=== PATIENT | female | born 1985 | race Caucasian/White ===

== ENCOUNTER → 2023-11-29 | Outpatient (CLI) | payer OTHER | END | disposition home or self-care (01) | LOC: LABWHC1 16:08 | PROVIDERS: ATTEND Obstetrics & Gynecology Obstetrics | DX: Z34.83 Encounter for supervision of other normal pregnancy, third trimester (principal) | CPT/HCPCS: 86850; 86900; 86901 ==

== ENCOUNTER 2023-12-25 15:31 | Outpatient (CLI) | payer OTHER ==
[2023-12-25 16:37] LABS: Basophils % (A) 0 %; Eosinophils # (A) 0.3 k/uL (0-0.7); Eosinophils % (A) 3 %; HCT 34.4 % (34.0-46.0); Lymphocytes # (A) 1.2 k/uL (1.0-4.8); Lymphocytes % (A) 13 %; MCH 27.6 pg (25.0-35.0); MCHC 31.8 g/dL (31.0-37.0); MCV 86.5 fL (80.0-100.0); Mean Platelet Volume 9.7; Monocytes # (A) 0.5 k/uL (0-1.0); Monocytes % (A) 5 %; Neutrophils # (A) 6.6 k/uL (1.3-7.7); Neutrophils % (A) 75 %; Platelet Count 324 k/uL (150-450); RBC 3.97 m/uL (3.80-5.40); RDW 15.9 % (11.5-15.5); WBC 8.8 k/uL (3.8-10.6)
[2023-12-25 16:38] LABS: ALT 21 U/L (4-34); AST 27 U/L (14-36); African American GFR (CKD) >90 (>60 ml/min/1.73 sqM); Blood Urea Nitrogen 11 mg/dL (7-17); LDH 192 U/L (120-246); Non-African American GFR(CKD) >90 (>60 ml/min/1.73 sqM); Uric Acid 6.2 mg/dL (3.7-7.4)
[2023-12-25 16:52] LABS: Appearance,Urine Cloudy (Clear); Bacteria,Urine Many /hpf; Bilirubin,Urine Negative (Negative); Blood,Urine Negative (Negative); Calcium Oxalate Crystals,Urine Rare /hpf; Color,Urine Yellow; Glucose,Urine (UA) Negative (Negative); Ketones,Urine Negative (Negative); Leukocyte Esterase,Urine Large (Negative); Mucus,Urine Few /hpf; Nitrite,Urine Negative (Negative); Protein,Urine 1+ (Negative); RBC,Urine 2 /hpf (0-5); Specific Gravity,Urine 1.031 (1.001-1.035); Squamous Epithelial Cell,Urine 35 /hpf (0-4); Urobilinogen,Urine <2.0 mg/dL (<2.0); WBC,Urine 9 /hpf (0-5)
[2023-12-25 17:57] LABS: Creatinine,Urine Random 161.5 mg/dL; Creatinine,Urine Random 163.7 mg/dL; Protein/Creatinine Ratio,Urine 0.155
[2023-12-25] MEDS: LABETALOL 100 MG TAB PO STA (18:12)
[2023-12-25] MEDS: ACETAMINOPHEN TAB 500 MG TAB PO STA (18:52)
[2023-12-25 20:15] VITALS: BP 160/94; PULSE 95; RESP 18; TEMP 98
--- NOTE | 2024-01-08 09:36 | P.MSEPDOC ---
Presenting Problems - Arrival Data Date of Arrival on Unit: 12/25/23 Time of Arrival on Unit: 15:31 Mode of Transport: Ambulatory - Complaint OB-Reason for Admission/Chief Complaint: Elevated Blood Pressure Comment: Elevated BP in office Medical History - Information : 2 Para: 0 Term: 0 : 0 Abortions: Spontaneous or Elective: 1 Number of Living Children: 0 - Gestational Age Gestational Age by JOSR (wks/days): 31 Weeks and 4 Days Review of Systems - Review of Systems Constitutional: No problems Breast: No problems ENT: No problems Cardiovascular: No problems Respiratory: No problems Gastrointestinal: No problems Genitourinary: No problems Musculoskeletal: No problems Neurological: No problems Skin: No problems Vital Signs - Temperature Temperature: 98.0 F Temperature Source: Temporal Artery Scan - Pulse Right Pulse Rate: 95 Pulse Assessment Method: Pulse Oximetry - Respirations Respiratory Rate: 18 Oxygen Delivery Method: Room Air - Blood Pressure Right Arm Blood Pressure: 160/94 Blood Pressure Mean: 116 Blood Pressure Source: Automatic Cuff Medical Screen Scoring - Assessment - Baby A Baseline FHR: 135 Heart Rate - NICHD Category: Category I (Normal) NST: Reactive Physician Notification - Physician Notified Physician Notified Date: 12/25/23 Physician Notified Time: 19:33 Physician: Kristin Garrison Order Received: No (Pt okay to d/c to home) Maternal Triage Index - Maternal Triage Index Presenting for scheduled procedure w/no complaint: No - Stat/Priority 1 Stat Priority 1: No - Urgent/Priority 2 Urgent Priority 2: Yes Provider Notified: Kristel Grimes Provider Notified Time: 16:00 Criteria Met for Priority 2: elevated Blood Pressures Disposition - Disposition OB Disposition: Discharge to home Discharge Date: 12/25/23 Discharge Time: 19:42 I agree with the RN Medical Screening Exam: Yes Case reviewed; plan agreed upon as documented in EMR&OBIX.: Yes Diagnosis: RELATED CONDITIONS, UNSPECIFIED, THIRD TRIMESTER
== END 2023-12-25 19:42 | disposition home or self-care (01) ==
LOC: FBPOP 15:31
PROVIDERS: ATTEND Obstetrics & Gynecology Obstetrics
DX: O13.3 Gestational [pregnancy-induced] hypertension without significant proteinuria, third trimester (principal); Z3A.31 31 weeks gestation of pregnancy; Z88.1 Allergy status to other antibiotic agents
CPT/HCPCS: 59025; 81001; 82565; 82570; 83615; 84156; 84450; 84460; 84520; 84550; 85025; 99215

== ENCOUNTER 2024-01-11 23:10 | Outpatient (CLI) | payer OTHER ==
[2024-01-11] MEDS ORDERED: LACTATED RINGERS 1,000 ML IV SCH (23:45)
[2024-01-12 00:12] VITALS: BP 161/87; PULSE 83; RESP 14; TEMP 98.3
[2024-01-12 00:13] LABS: Anisocytosis Slight; Basophils % (A) 0 %; Eosinophils # (A) 0.2 k/uL (0-0.7); Eosinophils % (A) 2 %; HCT 33.4 % (34.0-46.0); HGB 10.8 gm/dL (11.4-16.0); Lymphocytes # (A) 1.2 k/uL (1.0-4.8); Lymphocytes % (A) 13 %; MCHC 32.3 g/dL (31.0-37.0); MCV 86.9 fL (80.0-100.0); Mean Platelet Volume 9.4; Monocytes # (A) 0.6 k/uL (0-1.0); Monocytes % (A) 6 %; Neutrophils # (A) 7.5 k/uL (1.3-7.7); Neutrophils % (A) 77 %; Platelet Count 282 k/uL (150-450); RBC 3.85 m/uL (3.80-5.40); RDW 16.5 % (11.5-15.5); WBC 9.7 k/uL (3.8-10.6)
[2024-01-12 00:22] LABS: ALT 16 U/L (4-34); AST 22 U/L (14-36); African American GFR (CKD) >90 (>60 ml/min/1.73 sqM); Blood Urea Nitrogen 14 mg/dL (7-17); LDH 183 U/L (120-246); Non-African American GFR(CKD) >90 (>60 ml/min/1.73 sqM)
[2024-01-12 00:53] LABS: Appearance,Urine Cloudy (Clear); Bacteria,Urine Occasional /hpf; Bilirubin,Urine Negative (Negative); Blood,Urine Trace (Negative); Color,Urine Yellow; Glucose,Urine (UA) Negative (Negative); Ketones,Urine Negative (Negative); Leukocyte Esterase,Urine Negative (Negative); Mucus,Urine Rare /hpf; Nitrite,Urine Negative (Negative); Protein,Urine 2+ (Negative); RBC,Urine 1 /hpf (0-5); Specific Gravity,Urine 1.033 (1.001-1.035); Squamous Epithelial Cell,Urine 10 /hpf (0-4); Urobilinogen,Urine <2.0 mg/dL (<2.0); WBC,Urine 5 /hpf (0-5)
[2024-01-12 01:15] LABS: Protein/Creatinine Ratio,Urine 2.281
--- NOTE | 2024-01-20 12:29 | P.MSEPDOC ---
Presenting Problems - Arrival Data Date of Arrival on Unit: 01/11/24 Time of Arrival on Unit: 23:10 Mode of Transport: Ambulatory - Complaint OB-Reason for Admission/Chief Complaint: Elevated Blood Pressure Comment: elevated bp at home. pt denies any s/sx Medical History - Information : 2 Para: 0 Term: 0 : 0 Abortions: Spontaneous or Elective: 0 Number of Living Children: 0 - Gestational Age Gestational Age by JOSR (wks/days): 34 Weeks and 1 Days - History Comment: gestational htn. cholestasis. Review of Systems - Review of Systems Constitutional: No problems Breast: No problems ENT: No problems Cardiovascular: No problems Respiratory: No problems Gastrointestinal: No problems Genitourinary: No problems Musculoskeletal: No problems Neurological: No problems Skin: No problems Vital Signs - Temperature Temperature: 98.3 F Temperature Source: Oral - Pulse Right Pulse Rate: 83 Pulse Assessment Method: Pulse Oximetry - Respirations Respiratory Rate: 14 Oxygen Delivery Method: Room Air O2 Sat by Pulse Oximetry: 97 - Blood Pressure Right Arm Blood Pressure: 161/87 Blood Pressure Mean: 111 Blood Pressure Source: Automatic Cuff Medical Screen Scoring - Assessment - Baby A Baseline FHR: 130 Heart Rate - NICHD Category: Category I (Normal) NST: Reactive Physician Notification - Physician Notified Physician Notified Date: 01/12/24 Physician Notified Time: 01:17 Physician: Judy Jackson - Notification Comment Comment: see obix notes Maternal Triage Index - Maternal Triage Index Presenting for scheduled procedure w/no complaint: No - Stat/Priority 1 Stat Priority 1: No - Urgent/Priority 2 Urgent Priority 2: Yes Provider Notified: Judy Jackson Provider Notified Time: 23:33 Criteria Met for Priority 2: elevated bps > 160/90 Disposition - Disposition OB Disposition: Discharge to home, Written follow up instructions reviewed Discharge Date: 01/12/24 Discharge Time: 01:46 I agree with the RN Medical Screening Exam: Yes Case reviewed; plan agreed upon as documented in EMR&OBIX.: Yes Diagnosis: GESTATIONAL HTN W/O SIGNIFICANT PROTEINURIA, THIRD TRIMESTER
== END 2024-01-12 01:46 | disposition home or self-care (01) ==
LOC: FBPOP 23:10
PROVIDERS: ATTEND Obstetrics & Gynecology
DX: O13.3 Gestational [pregnancy-induced] hypertension without significant proteinuria, third trimester (principal); Z3A.34 34 weeks gestation of pregnancy; Z88.1 Allergy status to other antibiotic agents
CPT/HCPCS: 59025; 81001; 82565; 82570; 83615; 84156; 84450; 84460; 84520; 84550; 85025; 99215

== ENCOUNTER 2024-01-18 16:35 | Inpatient (IN) | payer OTHER ==
[2024-01-18] MEDS: LACTATED RINGERS 1,000 ML IV SCH ×2 (17:20→19:58)
[2024-01-18] MEDS ORDERED: hydrALAZINE HCL 20 MG/ML 1 ML VIAL IVP PRN (17:25)
[2024-01-18] MEDS ORDERED: LABETALOL 5 MG/ML VIAL MDV IVP PRN ×3 (17:25→21:36)
[2024-01-18 17:39] LABS: Creatinine,Urine Random 124.6 mg/dL
[2024-01-18 17:42] LABS: Appearance,Urine Cloudy (Clear); Bacteria,Urine Few /hpf; Bilirubin,Urine Negative (Negative); Blood,Urine Small (Negative); Color,Urine Light Yellow; Glucose,Urine (UA) Negative (Negative); Ketones,Urine Negative (Negative); Leukocyte Esterase,Urine Small (Negative); Mucus,Urine Occasional /hpf; Nitrite,Urine Negative (Negative); PH, Urine 6.5 (5.0-8.0); Protein,Urine 3+ (Negative); RBC,Urine 1 /hpf (0-5); Specific Gravity,Urine 1.032 (1.001-1.035); Squamous Epithelial Cell,Urine 17 /hpf (0-4); Urobilinogen,Urine <2.0 mg/dL (<2.0); WBC,Urine 19 /hpf (0-5)
[2024-01-18] MEDS: LABETALOL 5 MG/ML VIAL MDV IVP PRN ×2 (17:46→19:38)
[2024-01-18 18:12] LABS: Anisocytosis Slight; Basophils % (A) 0 %; Eosinophils # (A) 0.2 k/uL (0-0.7); Eosinophils % (A) 2 %; HCT 34.9 % (34.0-46.0); Lymphocytes # (A) 1.2 k/uL (1.0-4.8); Lymphocytes % (A) 12 %; MCHC 31.6 g/dL (31.0-37.0); MCV 88.5 fL (80.0-100.0); Mean Platelet Volume 9.9; Monocytes # (A) 0.6 k/uL (0-1.0); Monocytes % (A) 6 %; Neutrophils # (A) 7.5 k/uL (1.3-7.7); Neutrophils % (A) 77 %; Platelet Count 317 k/uL (150-450); RBC 3.94 m/uL (3.80-5.40); WBC 9.8 k/uL (3.8-10.6)
[2024-01-18 18:21] LABS: ALT 15 U/L (4-34); AST 28 U/L (14-36); African American GFR (CKD) >90 (>60 ml/min/1.73 sqM); Blood Urea Nitrogen 17 mg/dL (7-17); LDH 292 U/L (120-246); Non-African American GFR(CKD) >90 (>60 ml/min/1.73 sqM); Uric Acid 6.7 mg/dL (3.7-7.4)
[2024-01-18 18:47] LABS: INR 0.9 (<1.2); Prothrombin Time 9.7 sec (10.0-12.5)
[2024-01-18 19:17] LABS: Glucose,Whole Blood 81 mg/dL (70-110)
[2024-01-18] MEDS ORDERED: CALCIUM GLUCONATE 1 GM/10 ML VIAL IV PRN (19:20)
[2024-01-18] MEDS: AMPICILLIN 2,000 MG in SODIUM CHLORIDE 0.9% 100 ML IVPB STA (19:20)
[2024-01-18] MEDS ORDERED: OXYTOCIN 10 UNIT/ML 1 ML VIAL IM PRN (19:23)
[2024-01-18] MEDS ORDERED: CARBOPROST TROMETHAMINE 250 MCG/ML 1 ML AMP IM PRN (19:23)
[2024-01-18] MEDS ORDERED: METHYLERGONOVINE 0.2 MG/ML 1 ML AMP IM PRN (19:23)
[2024-01-18] MEDS ORDERED: TRANEXAMIC 1,000 MG/100ML-NACL 1,000 MG in EMPTY BAG 1 BAG IV PRN (19:23)
[2024-01-18] MEDS ORDERED: LIDOCAINE 0.5% (PF) 5 MG/ML (50 ML SDV) SQ PRN (19:23)
[2024-01-18] MEDS ORDERED: TERBUTALINE 1 MG/ML VIAL SQ PRN (19:23)
[2024-01-18] MEDS ORDERED: miSOPROStoL 200 MCG TAB PO PRN (19:23)
[2024-01-18] MEDS: MAGNESIUM SULFATE-WATER PMX 4 GM in WATER FOR INJECTION 1 100ML.BAG IVPB ONE (19:35)
[2024-01-18] MEDS: MAGNESIUM SULFATE-WATER PMX 20 GM in WATER FOR INJECTION 1 500ML.BAG IV SCH (19:54)
[2024-01-18] MEDS: FAMOTIDINE 20 MG/2 ML VIAL IV STA (20:07)
[2024-01-18] MEDS: OXYTOCIN 30 UNITS/500 ML NS 30 UNIT in SALINE 1 500ML.BAG IV SCH (20:08)
[2024-01-18] MEDS: hydrALAZINE HCL 20 MG/ML 1 ML VIAL IVP PRN ×2 (21:43→22:10)
[2024-01-18] MEDS: AMPICILLIN 1,000 MG in SODIUM CHLORIDE 0.9% 50 ML IVPB SCH (22:48)
[2024-01-19] MEDS ORDERED: NALBUPHINE 10 MG/ML (10 ML MDV) IV PRN (02:04)
[2024-01-19] MEDS: ACETAMINOPHEN TAB 500 MG TAB PO STA (02:14)
[2024-01-19] MEDS: ACETAMINOPHEN IV (For NPO) 1,000 MG in EMPTY BAG 1 BAG IVPB ONE (07:53)
--- NOTE | 2024-01-19 08:20 | P.PN ---
Progress Note - Text Progress Note Date: 01/19/24 Patient did well overnight. Tolerating magnesium quickly. She does complain of a headache. heart tones have been category 1, she is nathen irregularly. Patient underwent amniotomy this morning clear fluid was obtained. Assessment IUP at 35-1/7 weeks Severe preeclampsia GDM A1 AMA Hypothyroidism Headache Plan Continue Pitocin augmentation of labor, IV magnesium continues. Patient is offered epidural/Nubain for pain control. Continue to monitor I's and O's strictly. Urine in Fuentes catheter has been blood-tinged through the night, continue close observation IV Ofirmev for headache
--- NOTE | 2024-01-19 09:11 | P.HPOB ---
History of Present Illness H&P Date: 01/18/24 Chief Complaint: IUP at 35-0/7 weeks, preeclampsia with severe features This is a 38-year-old G2, P0 at 35-0/7 weeks that presents from the office after noted elevated blood pressures. Patient has been taking labetalol 200 mg twice daily and noted elevated blood pressures at home 140s over 90s. Patient states she began having headaches yesterday morning along with slight changes in her vision. Patient denies loss of peripheral vision. Patient notes good movement. Ultrasound done in the office yesterday revealing estimated weight of 7 pounds 6 ounces, normal amniotic fluid index at 21. Vertex presentation Patient was sent to OB triage for continued monitoring and serial blood pressures. Labs are obtained, elevated uric acid at 6.3, elevated urine protein at 3+ awaiting protein creatinine ratio. (Urine protein increased from 1+ the week prior.) Blood pressure is elevated 160s/80-100. The labetalol pathway was initiated. Pressures remain elevated 160s over 80s. Patient in addition had noted urticaria of hands and feet and bile acids were noted to be elevated last week. Patient was started on urosidiol and itching has improved. Liver functions have remained normal. History of gestational Beatties, diet-controlled. Review of Systems Constitutional: Reports fatigue, Denies chills, Denies fever Ears, nose, mouth and throat: Reports headache Cardiovascular: Reports leg edema Respiratory: Denies dyspnea Gastrointestinal: Denies constipation, Denies diarrhea, Denies nausea, Denies vomiting Genitourinary: Reports Past Medical History Past Medical History: No Reported History History of Any Multi-Drug Resistant Organisms: None Reported Additional Past Surgical History / Comment(s): Laperoscopy in 2022 for endometriosis. Past Anesthesia/Blood Transfusion Reactions: No Reported Reaction Past Psychological History: No Psychological Hx Reported Smoking Status: Never smoker Past Alcohol Use History: None Reported Past Drug Use History: None Reported - Past Family History Father Additional Family Medical History / Comment(s): Multiple myeloma. Medications and Allergies Home Medications Medication Instructions Recorded Confirmed Type Aspirin [Adult Low Dose Aspirin EC] 81 mg PO DAILY 01/11/24 01/18/24 History Famotidine [Pepcid] 20 mg PO BID 01/11/24 01/18/24 History Iron 18 mg PO DAILY 01/11/24 01/11/24 History Labetalol [Trandate] 200 mg PO BID 01/11/24 01/18/24 History Levothyroxine Sodium [Synthroid] 75 mcg PO DAILY 01/11/24 01/11/24 History ursodioL [Ursodiol] 300 mg PO DAILY 01/11/24 01/18/24 History Allergies Allergy/AdvReac Type Severity Reaction Status Date / Time bacitracin Allergy Rash/Hives Verified 01/18/24 17:03 [From Neosporin ([id number])] neomycin Allergy Rash/Hives Verified 01/18/24 17:03 [From Neosporin ([id number])] polymyxin B Allergy Rash/Hives Verified 01/18/24 17:03 [From Neosporin ([id number])] Exam Osteopathic Statement: *. No significant issues noted on an osteopathic structural exam other than those noted in the History and Physical/Consult. Vital Signs Temp Pulse Resp BP Pulse Ox 01/18/24 18:11 98.4 F 86 16 178/97 97 01/18/24 17:02 98.4 F 86 16 178/97 97 Intake and Output 01/18/24 01/18/24 01/18/24 06:59 14:59 22:59 Other: Weight 93.894 kg Targeted physical exam is performed this date General is a well-nourished well- developed female in no acute distress, breathing is nonlabored, heart has a regular rate and rhythm, abdomen is gravid, cervical exam she is 1/50/-3, vertex presentation. heart tones are noted to be category 1 and she is not nathen. Results Result Diagrams: 01/18/24 17:07 01/18/24 17:07 Abnormal Lab Results - Last 24 Hours (Table) 01/18/24 01/18/24 01/18/24 Range/Units 17:07 17:07 17:07 Hgb 11.0 L (11.4-16.0) gm/dL RDW 17.0 H (11.5-15.5) % Creatinine 0.47 L (0.52-1.04) mg/dL Lactate Dehydrogenase 292 H (120-246) U/L Urine Appearance Cloudy H (Clear) Urine Protein 3+ H (Negative) Urine Blood Small H (Negative) Ur Leukocyte Esterase Small H (Negative) Urine WBC 19 H (0-5) /hpf Ur Squamous Epith Cells 17 H (0-4) /hpf Urine Bacteria Few H (None) /hpf Urine Mucus Occasional H (None) /hpf Assessment and Plan (1) 35 weeks gestation of Current Visit: Yes Status: Acute Code(s): Z3A.35 - 35 WEEKS GESTATION OF SNOMED Code(s): 68083780 (2) Preeclampsia Current Visit: Yes Status: Acute Code(s): O14.90 - UNSPECIFIED PRE- ECLAMPSIA, UNSPECIFIED TRIMESTER SNOMED Code(s): 358451560 (3) Cholestasis during Narrative/Plan: Bile acids slightly elevated Current Visit: Yes Status: Acute Code(s): O26.649 - INTRAHEPATIC CHOLESTASIS OF , UNSPECIFIED TRIMESTER SNOMED Code(s): 027428598 (4) GDM, class A1 Narrative/Plan: Good dietary control Current Visit: Yes Status: Acute Code(s): O24.410 - GESTATIONAL DIABETES MELLITUS IN , DIET CONTROLLED SNOMED Code(s): 97251129 (5) Hypothyroidism Current Visit: Yes Status: Acute Code(s): E03.9 - HYPOTHYROIDISM, UNSPECIFIED SNOMED Code(s): 76063344 (6) PCOS (polycystic ovarian syndrome) Current Visit: Yes Status: Acute Code(s): E28.2 - POLYCYSTIC OVARIAN SYNDROME SNOMED Code(s): 617351088 Plan: 38 yo at 35 weeks of that presents for evaluation secondary to symptoms of preeclampsia with severe features. Patient is counseled on need for delivery secondary to preeclampsia with severe features. Labs are reviewed. Patient is counseled on prematurity concerns given gestational age. Patient states understanding. Will plan induction of labor
[2024-01-19] MEDS: LEVOTHYROXINE 75 MCG TAB PO SCH (11:33)
[2024-01-19] MEDS ORDERED: TRANEXAMIC 1,000 MG/100ML-NACL 1,000 MG in EMPTY BAG 1 BAG IV PRN (14:44)
[2024-01-19] MEDS ORDERED: CARBOPROST TROMETHAMINE 250 MCG/ML 1 ML AMP IM PRN (14:44)
[2024-01-19] MEDS ORDERED: miSOPROStoL 200 MCG TAB PO PRN (14:44)
[2024-01-19] MEDS ORDERED: METHYLERGONOVINE 0.2 MG/ML 1 ML AMP IM PRN (14:44)
[2024-01-19] MEDS ORDERED: OXYTOCIN 10 UNIT/ML 1 ML VIAL IM PRN (14:44)
[2024-01-19] MEDS: CITRIC ACID-SODIUM CITRATE 15 ML CUP PO ONE (15:06)
[2024-01-19] MEDS ORDERED: NALBUPHINE 10 MG/ML (10 ML MDV) ONE (15:15)
[2024-01-19] MEDS ORDERED: MORPHINE SULFATE (PF) 0.3 MG/0.3 ML SYR ONE (15:15)
[2024-01-19] MEDS ORDERED: ONDANSETRON 4 MG/2 ML VIAL ONE (15:15)
[2024-01-19] MEDS ORDERED: PHENYLEPHRINE-0.9% NACL SYG 1,000 MCG/10 ML SYRINGE ONE (15:15)
[2024-01-19] MEDS ORDERED: OXYTOCIN 30 UNITS/500 ML NS BAG IV ONE (15:15)
--- NOTE | 2024-01-19 16:10 | P.OP ---
Date of Procedure: 01/19/24 Preoperative Diagnosis: IUP at 35-1/7 weeks, preeclampsia with severe features, AMA, gestational diabetes A1, hypothyroidism, arrest of for stage of labor Postoperative Diagnosis: Same plus occiput posterior presentation Procedure(s) Performed: Primary low-transverse section Anesthesia: spinal Surgeon: Kristel Grimes Investigation Officer #1: Judy Jackson Estimated Blood Loss (ml): 380 IV fluids (ml): 800 Urine output (ml): 100 Pathology: other (Placenta) Condition: stable Disposition: observation Indications for Procedure: 38-year-old G2, P0 at 35-1/7 weeks that was admitted yesterday for preeclampsia with severe features. Pitocin augmentation of labor was begun around 1800, magnesium GTT was begun in addition. Patient had significantly elevated blood pressures 160s/100s. Patient received IV labetalol and hydralazine for blood pressure control. Patient has made very minimal change since 1800 last evening. Patient is counseled on lack of descent/dilation. Patient states understanding questions were answered. Decision was made with myself the patient and her . Anesthesia is notified. Operative Findings: Viable male infant delivered at 1536, weight of 6 pounds 10 ounces, Apgars of 7 and 8 at 1 and 5 minutes respectively. Normal uterus ovaries and fallopian tubes are appreciated. Interruption of right fallopian tube is appreciated from prior dissection of hydrosalpinx. Description of Procedure: The patient was prepped and draped in the usual fashion after spinal anesthesia was administered by the anesthesia department. A Pfannenstiel incision was made and extended of the abdominal cavity without difficulty. The bladder peritoneum was elevated and incised and reflected distally. A 2 cm incision was made in t he transverse plane of the lower uterine segment to enter the uterus at which time clear fluid was noted. The incision was extended in both directions using the bandage scissors. The head was encountered within the field and delivered up and through the incision where the nose and mouth were thoroughly suctioned. Remainder of the was delivered onto the surgical field where the cord was doubly clamped, cut, and the was passed for resuscitative measures with weight and Apgars as noted above. The placenta was delivered manually, intact, and was grossly normal with a grossly normal three-vessel cord. The uterus was exteriorized and the interior cavity of the uterus swept of any remaining placental and membranous fragments with a laparotomy sponge. The margins of the incision were grasped with Fontana clamps and the incision closed in 2 layers. First layer was a running locking layer of 0 Vicryl from margin to margin followed by a second layer of imbricating 0 Vicryl from margin to margin. Any small points of bleeding were then made hemostatic with the Bovie. Bleeding was noted on the midportion of the uterine incision therefore a [id number] suture was used to obtain hemostasis. Once hemostasis was achieved, the posterior cul-de-sac was suctioned with a guard and the uterine and ovarian findings are as noted above. The uterus was replaced within the abdominal cavity and the gutters swept of any remaining blood fluid or clot. The incision was again reexamined and hemostasis was noted to be excellent. Any small point of bleeding were made hemostatic with the Bovie. Once hemostasis was achieved the parietal peritoneum was loosely reapproximated. The layer of muscles were examined and made hemostatic with the Bovie. Attention was then turned to the fascia which was closed with 2 running stitches of 0 Vicryl proceeding from the lateral margins to the midpoint. The subcutaneous tissues were irrigated, made hemostatic with the Bovie, and reapproximated with a running stitch of 30 Vicryl. The skin was reapproximated with regular surgical sadiq. Estimated blood loss for the case was approximately 380 mL. All sponge instrument and needle counts are correct. There were no complications. The patient tolerated the procedure well and proceeded to the recovery room in stable condition. Infant was taken back to special care nursery secondary to gestational age, pediatrics is in-house for evaluation of .
[2024-01-19] MEDS ORDERED: diphenhydrAMINE 50 MG/ML 1 ML VIAL IVP PRN (16:28)
[2024-01-19] MEDS ORDERED: METOCLOPRAMIDE 5 MG/ML 2 ML VIAL IVP PRN (16:28)
[2024-01-19] MEDS ORDERED: ZOLPIDEM 5 MG TAB PO PRN (16:28)
[2024-01-19] MEDS ORDERED: NALOXONE 0.4 MG/ML 1 ML VIAL IV PRN (16:28)
[2024-01-19] MEDS ORDERED: ONDANSETRON 4 MG/2 ML VIAL IVP PRN (16:28)
[2024-01-19] MEDS ORDERED: OXYTOCIN 30 UNITS/500 ML NS 30 UNIT in SALINE 1 500ML.BAG IV SCH (16:28)
[2024-01-19] MEDS: diphenhydrAMINE 50 MG/ML 1 ML VIAL IVP PRN (18:17)
[2024-01-19] MEDS: ACETAMINOPHEN IV (For NPO) 1,000 MG in EMPTY BAG 1 BAG IVPB SCH (18:45)
[2024-01-19] MEDS: IBUPROFEN IV 800 MG in SODIUM CHLORIDE 0.9% 250 ML IV SCH (18:56)
[2024-01-19] MEDS: ACETAMINOPHEN TAB 500 MG TAB PO SCH (18:57)
[2024-01-19] MEDS: LACTATED RINGERS 1,000 ML IV SCH (19:46)
[2024-01-19] MEDS: SENNOSIDES-DOCUSATE SODIUM 1 EACH TAB PO SCH (21:37)
[2024-01-19] MEDS: IBUPROFEN 600 MG TAB PO SCH (21:38)
[2024-01-19] MEDS: LABETALOL 200 MG TAB PO SCH (22:19)
[2024-01-20] MEDS: diphenhydrAMINE 50 MG CAP PO PRN (04:15)
[2024-01-20] MEDS: MEASLES-MUMPS-RUBELLA VACC/PF 12,500 UNIT/0.5 ML VIAL SQ ONE (06:01)
[2024-01-20 06:17] LABS: Anisocytosis Slight; Basophils % (A) 0 %; Eosinophils # (A) 0.3 k/uL (0-0.7); Eosinophils % (A) 3 %; HCT 31.6 % (34.0-46.0); HGB 10.1 gm/dL (11.4-16.0); Hypochromasia Slight; Lymphocytes % (A) 9 %; MCH 28.8 pg (25.0-35.0); MCHC 31.9 g/dL (31.0-37.0); MCV 90.1 fL (80.0-100.0); Mean Platelet Volume 9.8; Monocytes # (A) 0.5 k/uL (0-1.0); Monocytes % (A) 5 %; Neutrophils # (A) 8.7 k/uL (1.3-7.7); Neutrophils % (A) 82 %; Platelet Count 251 k/uL (150-450); RDW 17.4 % (11.5-15.5); WBC 10.6 k/uL (3.8-10.6)
[2024-01-20 06:32] LABS: ALT 14 U/L (4-34); AST 24 U/L (14-36); African American GFR (CKD) >90 (>60 ml/min/1.73 sqM); Blood Urea Nitrogen 12 mg/dL (7-17); LDH 251 U/L (120-246); Non-African American GFR(CKD) >90 (>60 ml/min/1.73 sqM); Uric Acid 7.4 mg/dL (3.7-7.4)
[2024-01-20 08:15] VITALS: RESP 16
--- NOTE | 2024-01-20 11:07 | P.PNOBGPC ---
Subjective - Subjective Principal diagnosis: Status post section postop day 1 Interval history: Patient was seen and examined. She is complaining of some dizziness and is still on magnesium sulfate which will be discontinued now. Blood pressures are low and she has no signs or symptoms of preeclampsia. Patient reports: Reports appetite normal, Reports voiding normally, Reports pain well controlled, Reports ambulating normally [place]: doing well Objective - Vital Signs Latest vital signs: Vital Signs Temp Pulse Resp BP Pulse Ox 01/20/24 09:43 78 16 128/78 01/20/24 08:00 97.8 F 76 16 118/59 01/20/24 07:00 85 18 129/71 95 01/20/24 06:00 76 18 128/72 01/20/24 05:00 74 18 116/59 01/20/24 04:00 96.9 F L 82 18 113/56 96 01/20/24 03:00 76 18 97/57 01/20/24 02:00 78 16 105/63 01/20/24 01:00 78 18 100/56 01/20/24 00:00 97.7 F 89 18 134/84 95 01/19/24 23:00 85 18 126/64 95 01/19/24 22:00 85 18 155/95 98 01/19/24 21:00 90 18 131/75 96 01/19/24 20:00 98.3 F 82 18 141/86 97 01/19/24 19:00 77 16 151/85 97 01/19/24 18:05 98.9 F 74 16 140/90 98 01/19/24 17:50 74 16 150/94 98 01/19/24 17:35 68 16 145/91 96 01/19/24 17:20 71 16 166/95 95 01/19/24 17:05 75 16 148/91 96 01/19/24 16:50 75 16 143/86 98 01/19/24 16:35 77 16 140/83 96 01/19/24 16:20 76 16 137/79 97 01/19/24 16:05 96.7 F L 80 16 129/70 93 L 01/19/24 15:06 87 16 147/86 96 01/19/24 14:00 99.0 F 84 16 133/75 97 01/19/24 13:06 86 16 156/82 97 01/19/24 12:00 98.3 F 84 16 152/76 96 Intake and Output 01/19/24 01/20/24 01/20/24 22:59 06:59 14:59 Intake Total 1960 476.667 Output Total 1805 850 150 Balance 155 -373.333 -150 Intake: IV 1000 Magnesium Sulfate-Water 200 Pmx 20 gm In Water For Injection 1 500ml.bag @ 2 GM/HR 50 mls/hr IV .Q10H [facility] Rx#:[id number] Intake, IV Titration 960 476.667 Amount ACETAMINOPHEN IV (For NPO 100 ) 1,000 mg In Empty Bag 1 bag @ 400 mls/hr IVPB Q6HR [facility]OME Rx#:[id number] Lactated Ringers 1,000 ml 75 @ 125 mls/hr IV .Q8H [facility]OME Rx#:[id number] Magnesium Sulfate-Water 500 476.667 Pmx 20 gm In Water For Injection 1 500ml.bag @ 2 GM/HR 50 mls/hr IV .Q10H [facility] Rx#:[id number] Oxytocin 30 Units/500 ml 285 Ns 30 unit In Saline 1 500ml.bag @ Per Protocol IV .Q0M [facility]OME Rx#:[id number] Output: Urine 1325 850 150 Output, Quantitative 480 Blood Loss Other: Voiding Method Indwelling Catheter Indwelling Catheter - Exam Lungs: bilateral: normal Chest: Normal S1, Normal S2 Extremities: Present: normal Abdomen: Present: normal appearance, soft. Absent: distention, tenderness Incision: Present: normal, dry, intact Uterus: Present: normal, firm - Labs Labs: Abnormal Lab Results - Last 24 Hours (Table) 01/20/24 01/20/24 Range/Units 05:55 05:55 RBC 3.50 L (3.80-5.40) m/uL Hgb 10.1 L (11.4-16.0) gm/dL Hct 31.6 L (34.0-46.0) % RDW 17.4 H (11.5-15.5) % Neutrophils # 8.7 H (1.3-7.7) k/uL Lactate Dehydrogenase 251 H (120-246) U/L Assessment and Plan (1) Status post primary low transverse section Current Visit: Yes Status: Acute Code(s): Z98.891 - HISTORY OF UTERINE SCAR FROM PREVIOUS SURGERY SNOMED Code(s): 469441438 (2) Preeclampsia Current Visit: Yes Status: Acute Code(s): O14.90 - UNSPECIFIED PRE- ECLAMPSIA, UNSPECIFIED TRIMESTER SNOMED Code(s): 365318068 Plan: 1. Increase ambulation 2. DC magnesium sulfate 3. Monitor blood pressures closely
[2024-01-20] MEDS: diphenhydrAMINE 25 MG CAP PO PRN (15:56)
--- NOTE | 2024-01-20 16:06 | P.PN ---
Progress Note - Text 01/20/24 756am 38-year-old female status post with spinal Duramorph. Patient seen and evaluated for postop pain she has a VAS of 2 with no complaints of nausea vomiting she has mild pruritus which should subside. Patient did complain of blurred vision but she had it before the anesthetic was initiated. I advised her to see an plaster lather if this persist
--- NOTE | 2024-01-21 10:16 | P.PNOBGPC ---
Subjective - Subjective Principal diagnosis: S/P 1*LTCS POD #2 Interval history: Patient seen and examined. Denies nausea, vomiting, chest pain, shortness of breath or calf pain. No headache or vision changes and dizziness from yesterday has resolved. She's been off magnesium sulfate for 24 hours and her blood pressures are increasing to 160s over 90s. She was given her labetalol 200 mg this morning after those pressures were taken. Patient reports: Reports appetite normal, Reports voiding normally, Reports pain well controlled, Reports ambulating normally : doing well, in NICU Objective - Vital Signs Latest vital signs: Vital Signs Temp Pulse Resp BP Pulse Ox 01/21/24 08:00 98.6 F 76 16 160/97 97 01/21/24 03:57 98.1 F 73 16 132/77 99 01/21/24 00:00 98.6 F 71 16 147/78 98 01/20/24 20:00 98.4 F 74 16 137/70 98 01/20/24 15:55 98.1 F 84 16 136/81 01/20/24 11:59 78 16 136/65 Intake and Output 01/20/24 01/21/24 01/21/24 22:59 06:59 14:59 Output Total 325 Balance -325 Output: Urine 325 Other: # Voids 1 - Exam Lungs: bilateral: normal Chest: Normal S1, Normal S2 Extremities: Present: normal Abdomen: Present: normal appearance, soft. Absent: distention, tenderness Incision: Present: normal, dry, intact Uterus: Present: normal, firm Assessment and Plan (1) Status post primary low transverse section Current Visit: Yes Status: Acute Code(s): Z98.891 - HISTORY OF UTERINE SCAR FROM PREVIOUS SURGERY SNOMED Code(s): 000320384 (2) Preeclampsia Current Visit: Yes Status: Acute Code(s): O14.90 - UNSPECIFIED PRE- ECLAMPSIA, UNSPECIFIED TRIMESTER SNOMED Code(s): 291560553 Plan: 1. Continue labetalol 200 mg twice a day 2. Continue to monitor blood pressures closely
--- NOTE | 2024-01-22 08:05 | P.PNOBGPC ---
Subjective - Subjective Principal diagnosis: Postop day 3, primary Interval history: Patient is doing well overall. Blood pressure elevated this morning. Denies signs or symptoms of preeclampsia. She is ambulating and voiding without difficulty. States her pain is well-controlled. Lochia is minimal. Infant remains in the nursery on oxygen Patient reports: Reports appetite normal, Reports voiding normally, Reports pain well controlled, Reports ambulating normally : doing well (Special care nursery) Objective - Vital Signs Latest vital signs: Vital Signs Temp Pulse Resp BP Pulse Ox 01/22/24 07:52 98.0 F 79 16 157/89 99 01/22/24 04:00 98.2 F 81 16 142/88 01/22/24 00:00 98.6 F 85 16 136/83 01/21/24 20:45 97.6 F 77 16 163/101 01/21/24 16:00 98.4 F 79 16 146/81 97 01/21/24 12:00 98.6 F 89 16 128/78 - Exam Extremities: Present: normal, edema Abdomen: Present: normal appearance, soft Incision: Present: normal, dry, intact Uterus: Present: normal, firm Assessment and Plan (1) 35 weeks gestation of Current Visit: Yes Status: Acute Code(s): Z3A.35 - 35 WEEKS GESTATION OF SNOMED Code(s): 46369412 (2) Preeclampsia Current Visit: Yes Status: Acute Code(s): O14.90 - UNSPECIFIED PRE- ECLAMPSIA, UNSPECIFIED TRIMESTER SNOMED Code(s): 340727653 (3) Cholestasis during Current Visit: Yes Status: Acute Code(s): O26.649 - INTRAHEPATIC CHOLESTASIS OF , UNSPECIFIED TRIMESTER SNOMED Code(s): 788075222 (4) GDM, class A1 Current Visit: Yes Status: Acute Code(s): O24.410 - GESTATIONAL DIABETES MELLITUS IN , DIET CONTROLLED SNOMED Code(s): 68716674 (5) Hypothyroidism Current Visit: Yes Status: Acute Code(s): E03.9 - HYPOTHYROIDISM, UNSPECIFIED SNOMED Code(s): 07648456 (6) Status post primary low transverse section Current Visit: Yes Status: Acute Code(s): Z98.891 - HISTORY OF UTERINE SCAR FROM PREVIOUS SURGERY SNOMED Code(s): 480906899 Plan: Patient is doing well overall. Will begin labetalol 200 mg twice daily. Continue routine postoperative care anticipate discharge home tomorrow.
[2024-01-22] MEDS: SIMETHICONE 80 MG CHEWABLE PO PRN (13:38)
[2024-01-23 09:13] VITALS: BP 146/93; PULSE 80; TEMP 98.4
--- NOTE | 2024-01-23 13:17 | P.DS ---
Providers Date of admission: 01/18/24 18:06 Expected date of discharge: 01/23/24 Attending physician: Kristel Grimes Primary care physician: Stated None - Discharge Diagnosis(es) (1) 35 weeks gestation of Status: Acute (2) Preeclampsia Status: Acute (3) Cholestasis during Status: Acute (4) GDM, class A1 Status: Acute (5) Hypothyroidism Status: Acute (6) Status post primary low transverse section Status: Acute Hospital Course: 38-year-old 2 now para 0-1-1-1 that presented to labor and delivery on 01/17 for induction of labor secondary to preeclampsia with severe features. Patient was admitted to labor and delivery and Pitocin induction of labor was begun. Soon afterwards magnesium was initiated as well. Patient had significantly elevated blood pressures 160s over 80s to 100, patient was given IV labetalol and hydralazine for blood pressure control. Patient had induction of labor with Pitocin began at 1800, patient made minimal change through the night, amniotomy was performed in the morning patient was noted to be 2 cm. Patient made very minimal change throughout the day and at 1400 was 2 cm 50% effaced with no change in station. Patient at this time elected a primary C- section. Patient was taken back to the operating suite where section was performed without difficulty. Patient delivered a viable male infant at 1536, weight of 6 pounds 10 ounces. Patient was taken back to the nursery secondary to gestational age and reading difficulties. Patient was placed on high flow oxygen after delivery. For full details on the please see the dictated operative report. Patient did well overall postoperatively. Patient did begin labetalol 200 mg twice daily for hypertension. On this postoperative day #4 she is ambulating and voiding without difficulty. Her blood pressures are responding well to labetalol. Patient is requesting discharge home. Patient Condition at Discharge: Good Plan - Discharge Summary Discharge Rx Participant: No New Discharge Prescriptions: No Action Famotidine [Pepcid] 20 mg PO BID Labetalol [Trandate] 200 mg PO BID ursodioL [Ursodiol] 300 mg PO DAILY Iron 18 mg PO DAILY Levothyroxine Sodium [Synthroid] 75 mcg PO DAILY Aspirin [Adult Low Dose Aspirin EC] 81 mg PO DAILY Discharge Medication List Aspirin [Adult Low Dose Aspirin EC] 81 mg PO DAILY 01/11/24 [History] Famotidine [Pepcid] 20 mg PO BID 01/11/24 [History] Iron 18 mg PO DAILY 01/11/24 [History] Labetalol [Trandate] 200 mg PO BID 01/11/24 [History] Levothyroxine Sodium [Synthroid] 75 mcg PO DAILY 01/11/24 [History] ursodioL [Ursodiol] 300 mg PO DAILY 01/11/24 [History] Follow up Appointment(s)/Referral(s): Kristel Grimes DO [Doctor of Osteopathic Medicine] - 02/29/24 1:00 pm Patient Instructions/Handouts: Hypertension (DC), (DC) Discharge Disposition: HOME SELF-CARE
== END 2024-01-23 11:58 | disposition home or self-care (01) | DRG 788 ==
LOC: FBPOP 16:35 → 4FBP 18:06
PROVIDERS: ADMIT Obstetrics & Gynecology Obstetrics; ATTEND Obstetrics & Gynecology Obstetrics
PROC: 3E033VJ Introduction of Other Hormone into Peripheral Vein, Percutaneous Approach (ICD-10-PCS; principal; 2024-01-18)
PROC: 10D00Z1 Extraction of Products of Conception, Low, Open Approach (ICD-10-PCS; 2024-01-19)
PROC: 10907ZC Drainage of Amniotic Fluid, Therapeutic from Products of Conception, Via Natural or Artificial Opening (ICD-10-PCS; 2024-01-19)
PROC: 3E0134Z Introduction of Serum, Toxoid and Vaccine into Subcutaneous Tissue, Percutaneous Approach (ICD-10-PCS; 2024-01-20)
DX: O14.14 Severe pre-eclampsia complicating childbirth (principal); O99.284 Endocrine, nutritional and metabolic diseases complicating childbirth; E03.9 Hypothyroidism, unspecified; E28.2 Polycystic ovarian syndrome; O26.643 Intrahepatic cholestasis of pregnancy, third trimester; O24.420 Gestational diabetes mellitus in childbirth, diet controlled; E78.79 Other disorders of bile acid and cholesterol metabolism; K76.89 Other specified diseases of liver; O99.73 Diseases of the skin and subcutaneous tissue complicating the puerperium; L29.9 Pruritus, unspecified; O32.8XX0 Maternal care for other malpresentation of fetus, not applicable or unspecified; O62.0 Primary inadequate contractions; O61.0 Failed medical induction of labor; Z28.310 Unvaccinated for COVID-19; Z79.890 Hormone replacement therapy; Z79.82 Long term (current) use of aspirin; Z79.899 Other long term (current) drug therapy; Z88.1 Allergy status to other antibiotic agents; Z88.8 Allergy status to other drugs, medicaments and biological substances; Z23 Encounter for immunization; Z3A.35 35 weeks gestation of pregnancy; Z37.0 Single live birth
CPT/HCPCS: 59025; 81001; 82565; 82570; 83615; 84156; 84450; 84460; 84520; 84550; 85025; 85384; 85610; 85730; 86850; 86870; 86880; 86900; 86901; 88307; 90707; 99215

== ENCOUNTER 2024-01-28 22:18 | Inpatient (IN) | payer OTHER ==
[2024-01-28 23:39] LABS: Appearance,Urine Clear (Clear); Bacteria,Urine Rare /hpf; Bilirubin,Urine Negative (Negative); Blood,Urine Small (Negative); Color,Urine Colorless; Glucose,Urine (UA) Negative (Negative); Ketones,Urine Negative (Negative); Leukocyte Esterase,Urine Negative (Negative); Mucus,Urine Rare /hpf; Nitrite,Urine Negative (Negative); Protein,Urine 2+ (Negative); RBC,Urine 1 /hpf (0-5); Specific Gravity,Urine 1.018 (1.001-1.035); Squamous Epithelial Cell,Urine 2 /hpf (0-4); Urobilinogen,Urine <2.0 mg/dL (<2.0); WBC,Urine 4 /hpf (0-5)
[2024-01-28 23:49] LABS: ALT 27 U/L (4-34); AST 29 U/L (14-36); African American GFR (CKD) >90 (>60 ml/min/1.73 sqM); Blood Urea Nitrogen 13 mg/dL (7-17); LDH 247 U/L (120-246); Non-African American GFR(CKD) >90 (>60 ml/min/1.73 sqM); Uric Acid 6.2 mg/dL (3.7-7.4)
[2024-01-28 23:50] LABS: Anisocytosis Slight; Basophils # (A) 0.1 k/uL (0-0.2); Basophils % (A) 1 %; Eosinophils # (A) 0.3 k/uL (0-0.7); Eosinophils % (A) 4 %; HCT 37.9 % (34.0-46.0); HGB 11.5 gm/dL (11.4-16.0); Hypochromasia Slight; Lymphocytes # (A) 1.2 k/uL (1.0-4.8); Lymphocytes % (A) 16 %; MCH 27.5 pg (25.0-35.0); MCHC 30.4 g/dL (31.0-37.0); MCV 90.5 fL (80.0-100.0); Mean Platelet Volume 7.8; Monocytes # (A) 0.5 k/uL (0-1.0); Monocytes % (A) 6 %; Neutrophils # (A) 5.4 k/uL (1.3-7.7); Neutrophils % (A) 71 %; Platelet Count 431 k/uL (150-450); RBC 4.19 m/uL (3.80-5.40); WBC 7.6 k/uL (3.8-10.6)
[2024-01-28 23:51] LABS: Creatinine,Urine Random 72.6 mg/dL; Protein/Creatinine Ratio,Urine 2.424
[2024-01-29] MEDS: LABETALOL 5 MG/ML VIAL MDV IVP STA ×3 (00:12→00:59)
[2024-01-29] MEDS: hydrALAZINE HCL 20 MG/ML 1 ML VIAL IVP STA (01:24)
[2024-01-29] MEDS: hydrALAZINE HCL 20 MG/ML 1 ML VIAL IM STA (01:24)
[2024-01-29] MEDS: LABETALOL 100 MG TAB PO SCH (08:49)
[2024-01-29] MEDS: LEVOTHYROXINE 75 MCG TAB PO SCH (09:15)
[2024-01-29] MEDS: IBUPROFEN 600 MG TAB PO PRN (11:20)
[2024-01-29] MEDS: NIFEdipine XL 30 MG TAB.ER.24 PO SCH (13:26)
[2024-01-29] MEDS: ACETAMINOPHEN TAB 500 MG TAB PO PRN (14:49)
--- NOTE | 2024-01-30 12:14 | P.HPOB ---
History of Present Illness H&P Date: 01/29/24 Chief Complaint: PP HTN 38 yo s/p LTCS delivered at 35 weeks for severe pre e. She did receive magnesium gtt during deliver and 24 hours post . she ultimately underwent delivery for arrest of first stage of labor after almost 24 hours. She did well post and responded well to labetalol 200 mg bid. she was in the nursery on monday evening feeding her son and asked them to take her BP and it was elevated, sports cartoonist was called and she was advised to take labetalol 300mg tid. THe next night BP was elevated again 160's/ 100's. and she was admitted for hydralazine. she has pre e labs done upon admission. This am she is feeling good and is questioning discharge home. She was complaining of a headache the last 2 days and noted elevations of her BP at home as well. she noted some visual spots and sparkles in addition. she is pumping and bottlefeeding, lochia ia minimal. she denies pain from her c section. she does hve significant anxiety regarding her son understandably as she was delivered at 35 weeks and he has been in the nursery. He is doing well overall for gestational age. Review of Systems Constitutional: Denies chills, Denies fatigue, Denies fever Ears, nose, mouth and throat: Reports headache Cardiovascular: Reports leg edema Respiratory: Denies dyspnea Gastrointestinal: Denies nausea, Denies vomiting Genitourinary: Denies Past Medical History Past Medical History: No Reported History Additional Past Medical History / Comment(s): gestational diabetes and preclampsia History of Any Multi-Drug Resistant Organisms: None Reported Additional Past Surgical History / Comment(s): Laperoscopy in 2022 for endometriosis. Past Anesthesia/Blood Transfusion Reactions: No Reported Reaction Past Psychological History: No Psychological Hx Reported Smoking Status: Never smoker Past Alcohol Use History: None Reported Past Drug Use History: None Reported - Past Family History Father Additional Family Medical History / Comment(s): Multiple myeloma. Medications and Allergies Home Medications Medication Instructions Recorded Confirmed Type Aspirin [Adult Low Dose Aspirin EC] 81 mg PO DAILY 01/11/24 01/18/24 History Famotidine [Pepcid] 20 mg PO BID 01/11/24 01/18/24 History Iron 18 mg PO DAILY 01/11/24 01/11/24 History Labetalol [Trandate] 200 mg PO Q8HR 01/11/24 01/18/24 History Levothyroxine Sodium [Synthroid] 75 mcg PO DAILY 01/11/24 01/11/24 History ursodioL [Ursodiol] 300 mg PO DAILY 01/11/24 01/18/24 History Allergies Allergy/AdvReac Type Severity Reaction Status Date / Time bacitracin Allergy Rash/Hives Verified 01/28/24 22:56 [From Neosporin ([id number])] neomycin Allergy Rash/Hives Verified 01/28/24 22:56 [From Neosporin ([id number])] polymyxin B Allergy Rash/Hives Verified 01/28/24 22:56 [From Neosporin ([id number])] Exam Osteopathic Statement: *. No significant issues noted on an osteopathic structural exam other than those noted in the History and Physical/Consult. Vital Signs Temp Pulse Resp BP Pulse Ox 01/29/24 07:10 69 15 157/84 01/29/24 05:30 97.3 F L 88 15 159/86 01/29/24 04:30 81 15 159/89 01/29/24 03:28 79 13 154/84 99 01/29/24 02:50 98.1 F 83 18 155/94 96 01/29/24 02:30 79 15 146/82 01/29/24 01:28 97.2 F L 90 15 143/86 Intake and Output 01/28/24 01/29/24 01/29/24 22:59 06:59 14:59 Other: # Voids 1 Weight 81.647 kg 81.647 kg In general this is a well nourished well developed female in no acute distress resting comfortable in bed pumping, breathing is noted to be non labored Results Result Diagrams: 01/28/24 23:19 01/28/24 23:19 Abnormal Lab Results - Last 24 Hours (Table) 01/28/24 01/28/24 01/28/24 Range/Units 23:11 23:19 23:19 MCHC 30.4 L (31.0-37.0) g/dL RDW 17.0 H (11.5-15.5) % Creatinine 0.45 L (0.52-1.04) mg/dL Lactate Dehydrogenase 247 H (120-246) U/L Urine Protein 2+ H (Negative) Urine Blood Small H (Negative) Urine Bacteria Rare H (None) /hpf Urine Mucus Rare H (None) /hpf Assessment and Plan (1) hypertension Current Visit: Yes Status: Acute Code(s): O16.5 - UNSPECIFIED MATERNAL HYPERTENSION, COMP THE PUERPERIUM SNOMED Code(s): 48725208 Plan: 38 yo s/p LTCS readmitted for HTN. She is feeling well overall this am, BP after labetalol dose this am 145/87. plan to monitor BP this am with the increase dose, labs reviewed with pt and her . if BP remain stable will plan discharge later today, if BP increase consider adding procardia XL. plan reviewed with pt and questions answered she is understandably frustrated with readmission, and need for more medication.
--- NOTE | 2024-01-30 12:21 | P.PN ---
Progress Note - Text Progress Note Date: 01/30/24 Patient is doing well this morning. She continues to note a low-grade headache. Blood pressures 130s to 140s over 80s to 90s. Patient continues to pump as infant remains in the nursery secondary to gestational age. Vital signs as above 1 30-1 40s over 80s to 90s Abdomen is soft nontender, uterus firm below the umbilicus Extremities trace lower extremity edema is appreciated Assessment hypertension Preeclampsia with severe features delivered via approximately 1 week ago Plan Continue close observation of blood pressures, labetalol titrated to 300 mg 3 times daily. Plan is discussed with patient she states understanding and is anxious to be discharged.
[2024-01-30] MEDS: LABETALOL 100 MG TAB PO STA (17:46)
--- NOTE | 2024-01-30 18:17 | P.PN ---
Progress Note - Text Progress Note Date: 01/30/24 To see patient she remains in the nursery with her . Patient denies signs or symptoms of preeclampsia. Patient had controlled blood pressures through the day, blood pressures this afternoon after 4 PM labetalol dose noted to be elevated 160s over 80s to 90s. Patient is resting in bed at the time of blood pressure. Patient does note a mild headache throughout the day. Headache is controlled with ibuprofen. Patient is feeling treatment with labetalol, Procardia yesterday no change in blood pressure. Discussed with patient consult for hypertension. Patient is in agreement of plan. [facility] is consulted regarding hypertension management
[2024-01-30] MEDS: NIFEdipine XL 30 MG TAB.ER.24 PO STA (22:01)
[2024-01-30] MEDS: cloNIDine HCL 0.2 MG TAB PO STA (23:19)
[2024-01-30] MEDS ORDERED: cloNIDine HCL 0.2 MG TAB PO PRN (23:49)
--- NOTE | 2024-01-30 23:56 | P.CONS ---
History of Present Illness - Reason for Consult Consult date: 01/30/24 uncontrolled post hypertension - Chief Complaint high blood pressure - History of Present Illness 38 year old female with PCOS, 2 para 1 A1 About 10 days ago patient has delivered a baby by 5 weeks premature due to preeclampsia severe, baby boy still in the NICU, patient was discharged home initially however upon close monitoring of her blood pressure was found to be uncontrolled she comes back to the hospital yesterday for headache and elevated blood pressure. Medicine was consulted for refractory hypertension Currently patient denies any headache blurry vision nausea vomiting chest pain trouble breathing, patient has been receiving labetalol and nifedipine however continues to have poorly controlled hypertension she denies any abdominal pain denies any leg swelling. She denies any history of hypertension prior to Patient denies any tobacco smoking illicit drugs or heavy alcohol review of systems Pertinent positives as noted in HPI. All other systems were reviewed and are negative on exam Constitutional: No acute distress, conversant, pleasant Eyes: Anicteric sclerae, moist conjunctiva, Pupils equal round reactive to light ENMT: NC/AT Oropharynx clear, no erythema, or exudates Neck: Supple, no masses, or JVD No carotid bruits No thyromegaly Lungs: Clear to auscultation Clear to percussion Normal respiratory effort, no accessory muscle use Cardiovascular: Heart regular in rate and rhythm, No murmurs, gallops, or rubs No peripheral edema Abdominal: Soft Nontender, no guarding, rebound or rigidity Abdomen moving with respiration Normoactive bowel sounds Extremities: No digital cyanosis No clubbing Pedal pulses intact and symmetrical Radial pulses intact and symmetrical No calf tenderness Psychiatric: Alert and oriented to person, place and time Appropriate affect fair judgement Neuro Muscles Strength 5/5 in all 4 extremities Sensation to light touch grossly present throughout Cranial nerves II-XII grossly intact Past Medical History Past Medical History: No Reported History Additional Past Medical History / Comment(s): gestational diabetes and preclampsia History of Any Multi-Drug Resistant Organisms: None Reported Additional Past Surgical History / Comment(s): Laperoscopy in 2022 for endome triosis. Past Anesthesia/Blood Transfusion Reactions: No Reported Reaction Past Psychological History: No Psychological Hx Reported Smoking Status: Never smoker Past Alcohol Use History: None Reported Past Drug Use History: None Reported - Past Family History Father Additional Family Medical History / Comment(s): Multiple myeloma. Medications and Allergies Home Medications Medication Instructions Recorded Confirmed Type Aspirin [Adult Low Dose Aspirin EC] 81 mg PO DAILY 01/11/24 01/18/24 History Famotidine [Pepcid] 20 mg PO BID 01/11/24 01/18/24 History Iron 18 mg PO DAILY 01/11/24 01/11/24 History Labetalol [Trandate] 200 mg PO Q8HR 01/11/24 01/18/24 History Levothyroxine Sodium [Synthroid] 75 mcg PO DAILY 01/11/24 01/11/24 History ursodioL [Ursodiol] 300 mg PO DAILY 01/11/24 01/18/24 History Allergies Allergy/AdvReac Type Severity Reaction Status Date / Time bacitracin Allergy Rash/Hives Verified 01/28/24 22:56 [From Neosporin ([id number])] neomycin Allergy Rash/Hives Verified 01/28/24 22:56 [From Neosporin ([id number])] polymyxin B Allergy Rash/Hives Verified 01/28/24 22:56 [From Neosporin ([id number])] Physical Exam Vitals: Vital Signs Temp Pulse Resp BP Pulse Ox 01/30/24 20:00 97.2 F L 81 16 156/96 01/30/24 17:30 98.1 F 72 18 162/95 98 01/30/24 17:00 98.5 F 89 16 171/95 100 01/30/24 15:30 99.6 F 83 18 160/83 01/30/24 11:30 98.1 F 90 18 130/83 97 01/30/24 08:00 98.3 F 98 16 146/84 98 01/30/24 04:00 86 16 148/92 96 Intake and Output 01/30/24 01/30/24 01/30/24 06:59 14:59 22:59 Other: # Voids 1 1 2 Results CBC & Chem 7: 01/28/24 23:19 01/28/24 23:19 Assessment and Plan Assessment: Severe hypertension Give 1 time dose of nifedipine 30 mg this evening Increase nifedipine in the morning to 60 mg daily Continue with labetalol 300 mg p.o. 3 times daily Patient does not have IV access, clonidine point 2 mg p.o. every 8 hours for systolic blood pressure above 180 Start hydralazine 50 mg p.o. every 8 hours, with hold parameters of systolic blood pressure less than 120 Seizure precautions Liver enzymes unremarkable ALT 27 AST 29 Renal function unremarkable BUN 13 creatinine 0.45 Hemoglobin 11.5 unremarkable White count 7.6 Close monitoring of blood pressure Patient counseled to monitor her blood pressure closely which usually starts improving within 6 weeks , after which she might not require any medications Thank you for this consultation we will continue to follow-up along with you
[2024-01-31] MEDS: hydrALAZINE HCL 20 MG/ML 1 ML VIAL IVP STA (00:42)
[2024-01-31 08:08] LABS: ALT 24 U/L (4-34); AST 25 U/L (14-36); African American GFR (CKD) >90 (>60 ml/min/1.73 sqM); Albumin 3.6 g/dL (3.5-5.0); Alkaline Phosphatase 123 U/L (38-126); Anion Gap 5 mmol/L; Blood Urea Nitrogen 11 mg/dL (7-17); Calcium 10.2 mg/dL (8.4-10.2); Carbon Dioxide 25 mmol/L (22-30); Chloride 111 mmol/L (98-107); Glucose 86 mg/dL (74-99); Non-African American GFR(CKD) >90 (>60 ml/min/1.73 sqM); Potassium 4.5 mmol/L (3.5-5.1); Sodium 141 mmol/L (137-145); Total Bilirubin 0.5 mg/dL (0.2-1.3); Total Protein 6.2 g/dL (6.3-8.2)
[2024-01-31] MEDS: hydrALAZINE HCL 50 MG TAB PO SCH (09:05)
--- NOTE | 2024-01-31 10:59 | P.PN ---
Subjective Progress Note Date: 01/31/24 Principal diagnosis: Hypertension Katie was seen and examined. Blood pressure has normalized today. She is denying any symptoms. Plan of care discussed with her and her mother. Objective - Vital Signs Vital signs: Vital Signs Temp 97.1 F L 01/31/24 08:38 Pulse 93 01/31/24 08:38 Resp 16 01/31/24 08:38 BP 128/79 01/31/24 08:38 Pulse Ox 98 01/31/24 08:38 FiO2 96 01/31/24 02:24 Intake & Output 01/30/24 01/31/24 01/31/24 18:59 06:59 18:59 Other: # Voids 1 2 1 - Exam Vitals: Reviewed General: No acute distress Cardiovascular: RRR, S1-S2 Lungs: Breath sounds equal and clear to auscultation bilaterally. No wheezing, rhonchi or rales Extremities: Trace lower extremity edema - Labs CBC & Chem 7: 01/28/24 23:19 01/31/24 07:31 Labs: Abnormal Lab Results - Last 24 Hours (Table) 01/31/24 Range/Units 07:31 Chloride 111 H (98-107) mmol/L Creatinine 0.48 L (0.52-1.04) mg/dL Total Protein 6.2 L (6.3-8.2) g/dL Assessment and Plan Plan: # hypertension She was diagnosed with preeclampsia and had an early delivery. Currently blood pressure has normalized. Hold Procardia for now and continue with labetalol and hydralazine. Would recommend to limit NSAID use. # Hypothyroidism Continue with levothyroxine
--- NOTE | 2024-01-31 12:45 | P.PN ---
Progress Note - Text Progress Note Date: 01/31/24 Patient is feeling well this morning, appreciate IM consult regarding elevated blood pressures refractory to labetalol and Procardia. She denies signs or symptoms of preeclampsia. She is resting this morning, report given through the night from RN and notes reviewed from internal medicine Vital signs have normalized with labetalol and hydralazine In general this patient is resting in no acute distress Assessment hypertension Plan Continue current antihypertensive per internal medicine, appreciate consult
[2024-01-31] MEDS: NIFEdipine XL 30 MG TAB.ER.24 PO SCH (18:16)
[2024-01-31] MEDS: diphenhydrAMINE 25 MG CAP PO STA (20:57)
--- NOTE | 2024-02-01 08:34 | P.PN ---
Progress Note - Text Progress Note Date: 02/01/24 Patient did well through the night. She continues to deny signs or symptoms of preeclampsia. She seems to be doing well on the labetalol/hydralazine combination. Blood pressures yesterday evening through this morning 130s to 150s over 80s. Patient continues to pump at the bedside as infant remains in the nursery. Vital signs stable In general patient appears well no acute distress Abdomen soft nontender incision clean dry and intact Extremities edema is appreciated Assessment hypertension Plan Continue labetalol 300 mg 3 times daily, hydralazine 50 mg 3 times daily, Patient is doing well on this regimen, she is to call primary care for close follow-up given difficulty controlling blood pressures . Patient states understanding and will make phone call this morning.
[2024-02-01 12:30] VITALS: TEMP 98.2
--- NOTE | 2024-02-01 12:30 | P.PN ---
Progress Note - Text Progress Note Date: 02/01/24 Patient blood pressure is acceptable with current BP regimen. Medicine service will follow along peripherally.
[2024-02-01] MEDS: diphenhydrAMINE 2% CREAM 28.4 GM TUBE TOPICAL SCH (12:54)
--- NOTE | 2024-02-01 15:49 | P.DS ---
Providers Date of admission: 01/31/24 07:53 Expected date of discharge: 02/01/24 Attending physician: Veena Raya MD Consults: 01/30/24 18:12 Consult Physician Urgent Consulting Provider: Lisa Motley Consult Reason/Comments: HTN Do you want consulting provider notified?: Yes Primary care physician: Stated None - Discharge Diagnosis(es) (1) hypertension Current Visit: Yes Status: Acute Hospital Course: 38 yo female admitted for HTN. she is s/p LTCS, pre e with severe features. she did receive magnesium gtt during labor and for 24 hour PP. she was in the nursery on POD 6 and had noted elevated BP, she was placed in triage and elevated BP wre confirmed. She was admitted and IV hydralazine was initiated. she did well initially on labetalol 300mg tid, but her afternoon, evening Bp continue to rise. IM was consulted and added hydralazine 50mg po tid with her labetalol. She has done well with this regime. she is feeling well on this hospital day number 3. she denies s/s of pre e. Patient Condition at Discharge: Good Plan - Discharge Summary New Discharge Prescriptions: No Action Famotidine [Pepcid] 20 mg PO BID Labetalol [Trandate] 200 mg PO Q8HR ursodioL [Ursodiol] 300 mg PO DAILY Iron 18 mg PO DAILY Levothyroxine Sodium [Synthroid] 75 mcg PO DAILY Aspirin [Adult Low Dose Aspirin EC] 81 mg PO DAILY Discharge Medication List Aspirin [Adult Low Dose Aspirin EC] 81 mg PO DAILY 01/11/24 [History] Famotidine [Pepcid] 20 mg PO BID 01/11/24 [History] Iron 18 mg PO DAILY 01/11/24 [History] Labetalol [Trandate] 200 mg PO Q8HR 01/11/24 [History] Levothyroxine Sodium [Synthroid] 75 mcg PO DAILY 01/11/24 [History] ursodioL [Ursodiol] 300 mg PO DAILY 01/11/24 [History] Follow up Appointment(s)/Referral(s): Kristel Grimes DO [Doctor of Osteopathic Medicine] - 1 Week Discharge Disposition: HOME SELF-CARE
[2024-02-01 16:16] VITALS: BP 135/84; PULSE 92; RESP 16
== END 2024-02-01 16:55 | disposition home or self-care (01) | DRG 776 ==
LOC: FBPOP 22:18 → 4FBP 01-29 01:22 → OBSVTOIN 01-31 07:53
PROVIDERS: ADMIT Obstetrics & Gynecology; ATTEND Obstetrics & Gynecology
DX: O16.5 Unspecified maternal hypertension, complicating the puerperium (principal); E28.2 Polycystic ovarian syndrome; O99.345 Other mental disorders complicating the puerperium; O99.285 Endocrine, nutritional and metabolic diseases complicating the puerperium; F41.9 Anxiety disorder, unspecified; Z79.82 Long term (current) use of aspirin; Z79.890 Hormone replacement therapy; Z86.32 Personal history of gestational diabetes; Z88.8 Allergy status to other drugs, medicaments and biological substances
CPT/HCPCS: 36415; 80053; 81001; 82565; 82570; 83615; 84156; 84450; 84460; 84520; 84550; 85025; 96375; 99215